=== PATIENT | male | born 1935 | race Caucasian/White ===

== ENCOUNTER → 2016-06-20 | Outpatient (CLI) | payer OTHER ==
[~2016-06-20] MED LIST: CARB25TA75; LISI-646 PO; NIFEDICAL PO; TRIA50TA2 PO
[2016-06-20 09:10] LABS: Urine RBC None Seen /hpf (0 - 3)
[2016-06-20 09:25] LABS: Basophils # (auto) 0 uL; Basophils % (auto) 0.4 % (0.0-2.0); Eosinophils # (auto) 0.1 uL; Eosinophils % (auto) 2.2 % (0.0-7.0); Hematocrit 48.4 % (41.0-53.0); Hemoglobin 15.7 g/dL (13.5-17.5); Lymphocytes % (auto) 19.3 % (10.0-50.0); Mean Corpuscular Hemoglobin 30.3 pg (28.0-32.0); Mean Corpuscular Hgb Conc. 32.5 g/dL (32.0-36.0); Mean Corpuscular Volume 93.3 fL (80.0-100.0); Mean Platelet Volume 7.9 fL (7.4-10.4); Monocytes # (auto) 0.4 uL; Neutrophils # (auto) 3.6 uL; Neutrophils % (auto) 70.1 % (37.0-80.0); Platelet Count (auto) 160 10^3/uL (140-450); White Blood Cell 5.1 10^3/uL (4.4-10.8)
[2016-06-20 09:47] LABS: Urine Bilirubin Negative (Negative); Urine Blood Negative /uL (Negative); Urine Color Yellow (Yellow); Urine Glucose Normal (Normal); Urine Ketone Negative (Negative); Urine Mucus FEW (None Seen); Urine Nitrite Negative (Negative)
[2016-06-20 10:37] LABS: Albumin 3.6 g/dL (3.4-5.0); BUN/Creatinine Ratio 13.5; Bilirubin, Total 2.6 mg/dL (0.2-1.0); Calcium 8.6 mg/dL (8.5-10.1); Potassium 4.1 mmol/L (3.5-5.1); Total Protein 6.8 g/dL (6.4-8.2)
== END | disposition home or self-care (01) ==
LOC: LAB 08:22
PROVIDERS: ATTEND Internal Medicine
DX: R35.1 Nocturia (principal); C61 Malignant neoplasm of prostate; I10 Essential (primary) hypertension; E11.9 Type 2 diabetes mellitus without complications
CPT/HCPCS: 36415; 80053; 80061; 81001; 82043; 82306; 82607; 82784; 83036; 84153; 84439; 84443; 85025; 85652; 86334

== ENCOUNTER 2016-12-09 06:13 | Inpatient (IN) | payer OTHER ==
[~2016-12-09] VITALS: Ht 165.1 cm; Wt 67.6 kg
[2016-12-09] MEDS ORDERED: LORazepam 2MG/ML-1ML VIAL IV ONE (07:15)
[2016-12-09 07:30] LABS: Basophils # (auto) 0 uL; Basophils % (auto) 0.1 % (0.0-2.0); CONDITION Y; Eosinophils # (auto) 0.1 uL; Eosinophils % (auto) 1.6 % (0.0-7.0); Hematocrit 45.3 % (41.0-53.0); Hemoglobin 15.4 g/dL (13.5-17.5); Lymphocytes # (auto) 0.8 uL; Lymphocytes % (auto) 14.2 % (10.0-50.0); Mean Corpuscular Hemoglobin 31.5 pg (28.0-32.0); Mean Corpuscular Volume 92.6 fL (80.0-100.0); Mean Platelet Volume 8.1 fL (7.4-10.4); Monocytes # (auto) 0.4 uL; Neutrophils # (auto) 4.5 uL; Neutrophils % (auto) 77.1 % (37.0-80.0); Platelet Count (auto) 169 10^3/uL (140-450); White Blood Cell 5.9 10^3/uL (4.4-10.8)
[2016-12-09 07:46] LABS: Albumin 3.7 g/dL (3.4-5.0); Alkaline Phosphatase 59 U/L (45-117); Anion Gap 7 (5-15); Aspartate Aminotransferase 9 U/L (15-37); BUN/Creatinine Ratio 15.9; Bilirubin, Total 2.1 mg/dL (0.2-1.0); Blood Urea Nitrogen 17 mg/dL (7-18); Calcium 8.6 mg/dL (8.5-10.1); Carbon Dioxide 25 mmol/L (21-32); Chloride 108 mmol/L (98-107); GFR African American 86 mL/min; GFR Non-African American 71 mL/min; Glucose 97 mg/dL (74-106); Potassium 3.8 mmol/L (3.5-5.1); Sodium 140 mmol/L (136-145)
[2016-12-09] MEDS ORDERED: ASPI81TA27 PO (08:43)
[2016-12-09] MEDS ORDERED: METO-169 PO (08:43)
[2016-12-09] MEDS ORDERED: CYAN1TAB14 PO (08:44)
[2016-12-09] MEDS ORDERED: CARB25TA22 PO (08:44)
[2016-12-09] MEDS ORDERED: LISI-646 PO (08:44)
[2016-12-09] MEDS ORDERED: ACETAMINOPHEN 500 MG TAB PO PRN (09:45)
[2016-12-09] MEDS ORDERED: ASPirin-EC 81 mg tab PO ONE (09:45)
[2016-12-09] MEDS: METOPROLOL TARTRATE 25 MG TAB PO SCH ×2 (10:24→21:47)
[2016-12-09] MEDS: LISINOPRIL 20 MG TAB PO SCH (10:24)
[2016-12-09] MEDS: SODIUM CHLORIDE 0.9% 1,000 ML IV SCH ×2 (10:24→23:05)
[2016-12-09] MEDS: CARBIDOPA W LEVODOPA 25/100mg TABLET PO SCH ×2 (12:03→17:32)
[2016-12-09 13:00] VITALS: BP 175/79
[2016-12-09 13:38] VITALS: BP 175/79
[2016-12-09] MEDS ORDERED: cefTRIAXone 1GM/50ML D5W 50 ML IV ONE (14:30)
[2016-12-09 16:11] LABS: Urine Bilirubin Negative (Negative); Urine Blood Negative /uL (Negative); Urine Color Yellow (Yellow); Urine Glucose Normal (Normal); Urine Ketone Negative (Negative); Urine Mucus FEW (None Seen); Urine Nitrite Negative (Negative); Urine RBC 1 /hpf (0 - 3); Urine Urobilinogen Normal (Negative); Urine pH 5.5 (5.0-8.0)
[2016-12-09] MEDS: hydrALAZINE HCL 20 MG/ML VL IV SCH ×2 (17:37→23:48)
[2016-12-09 20:00] VITALS: BP 154/56
[2016-12-09 22:00] VITALS: BP 154/56
[2016-12-09] MEDS ORDERED: CARBIDOPA W LEVODOPA 25/100mg TABLET PO SCH (22:00)
[2016-12-09] MEDS ORDERED: QUEtiapine FUMARATE 25 MG TAB PO SCH (22:00)
[2016-12-09] MEDS ORDERED: traZODone HCL 50 MG TAB PO PRN (22:00)
[2016-12-10 05:00] VITALS: BP 141/74
[2016-12-10] MEDS: hydrALAZINE HCL 20 MG/ML VL IV SCH ×2 (06:00→12:44)
[2016-12-10] MEDS: CARBIDOPA W LEVODOPA 25/100mg TABLET PO SCH ×2 (06:00→12:43)
[2016-12-10 06:06] LABS: Prostate Specific Antigen 0.4 ng/mL (0.0-4.0)
[2016-12-10 07:00] LABS: Basophils # (auto) 0 uL; Basophils % (auto) 0.6 % (0.0-2.0); CONDITION Y; Eosinophils # (auto) 0 uL; Eosinophils % (auto) 0.6 % (0.0-7.0); Hematocrit 45.8 % (41.0-53.0); Hemoglobin 15.8 g/dL (13.5-17.5); Lymphocytes # (auto) 0.9 uL; Lymphocytes % (auto) 11.3 % (10.0-50.0); Mean Corpuscular Hemoglobin 31.7 pg (28.0-32.0); Mean Corpuscular Hgb Conc. 34.5 g/dL (32.0-36.0); Mean Corpuscular Volume 92.1 fL (80.0-100.0); Mean Platelet Volume 8.5 fL (7.4-10.4); Monocytes # (auto) 0.5 uL; Monocytes % (auto) 6.7 % (0.0-12.0); Neutrophils # (auto) 6.3 uL; Neutrophils % (auto) 80.8 % (37.0-80.0); Platelet Count (auto) 154 10^3/uL (140-450); White Blood Cell 7.8 10^3/uL (4.4-10.8)
[2016-12-10 07:37] LABS: BUN/Creatinine Ratio 13.4; Calcium 8.3 mg/dL (8.5-10.1); Potassium 3.6 mmol/L (3.5-5.1)
[2016-12-10 08:00] VITALS: BP 132/73
[2016-12-10 08:06] LABS: PSA Free 0.04 ng/mL
[2016-12-10] MEDS: METOPROLOL TARTRATE 25 MG TAB PO SCH (08:20)
[2016-12-10] MEDS: LISINOPRIL 20 MG TAB PO SCH (08:21)
[2016-12-10 08:55] VITALS: BP 132/73
[2016-12-10] MEDS ORDERED: cefTRIAXone 1GM/50ML D5W 50 ML IV SCH (09:00)
[2016-12-10] MEDS: SODIUM CHLORIDE 0.9% 1,000 ML IV SCH (12:45)
[2016-12-10 12:52] VITALS: BP 142/75
[2016-12-10 16:55] VITALS: BP 148/82
[2016-12-10 17:25] VITALS: BP 120/75
== END 2016-12-10 18:20 | disposition home or self-care (01) | DRG 871 ==
LOC: ER 06:17 → OVERFLOW 06:18 → CENTRAL 11:10 → TELE-CENTR 14:42
PROVIDERS: ADMIT Internal Medicine; ATTEND Family Medicine
DX: A41.9 Sepsis, unspecified organism (principal); G93.41 Metabolic encephalopathy; N17.0 Acute kidney failure with tubular necrosis; G20 Parkinson's disease; E86.0 Dehydration; F02.80 Dementia in other diseases classified elsewhere, unspecified severity, without behavioral disturbance, psychotic disturbance, mood disturbance, and anxiety; I70.90 Unspecified atherosclerosis; R26.9 Unspecified abnormalities of gait and mobility; F29 Unspecified psychosis not due to a substance or known physiological condition; F32.9 Major depressive disorder, single episode, unspecified; G30.1 Alzheimer's disease with late onset; I10 Essential (primary) hypertension; Z82.49 Family history of ischemic heart disease and other diseases of the circulatory system; Z85.46 Personal history of malignant neoplasm of prostate
CPT/HCPCS: 36415; 70450; 71010; 80048; 80053; 80307; 81001; 84154; 84443; 84484; 85025; 87086; 92610; 93005; 94761; 95819; J0696

== ENCOUNTER 2017-01-17 07:06 | Emergency (ER) | payer OTHER ==
[~2017-01-17 07:06] MED LIST changes: +ASPI81TA27 PO; +CARB25TA22 PO; +CYAN1TAB14 PO; +METO-169 PO
[2017-01-17 09:56] VITALS: BP 146/77
== END 2017-01-17 10:21 | disposition home or self-care (01) ==
LOC: ER 07:06
DX: G20 Parkinson's disease (principal); F03.90 Unspecified dementia, unspecified severity, without behavioral disturbance, psychotic disturbance, mood disturbance, and anxiety; I10 Essential (primary) hypertension; Z79.82 Long term (current) use of aspirin; Z85.46 Personal history of malignant neoplasm of prostate; Z86.73 Personal history of transient ischemic attack (TIA), and cerebral infarction without residual deficits